=== PATIENT | female | born 1960 | race African-American/Black ===

== ENCOUNTER → 2017-12-02 | Outpatient (CLI) | payer OTHER ==
--- NOTE | 2017-12-02 12:47 | S ---
[address] [address] SURGICAL PATH RPT PROCEDURE Name: RICHARD MAURICE Room: [facility]#: [id number] Admission: 12/02/17 Date of : 58 Discharge: Report #: [id number] Path Case #: [id number] PATHOLOGY REPORT COLLECTION DATE: 12/02/2017 RECEIVED DATE: 12/02/2017 SUBMITTING PHYS: Dr. Karsten Porter OTHER PHYS: SPECIMEN(S) RECEIVED: A.Left knee fluid * * * * * * * * * * * * FINAL DIAGNOSIS: (Left knee fluid): - Few crystals compatible with calcium pyrophosphate dihydrate (CPPD), without urate crystals identified. (JOE:huy; 12/02/2017) PATHOLOGIST: Arnol Nick M.D. REPORT ELECTRONICALLY SIGNED BY: Arnol Nick M.D. DATE/TIME: 12/02/2017 12:47 * * * * * * * * * * * * GROSS PATHOLOGY: Received for cell count, cultures, chemistries, and crystal analysis, is a syringe labeled, "Richard Maurice" and is noted to be from left knee (per telephonic confirmation with Dr. Porter by Alison/[facility] laborer [employer]), which contains approximately 60 mL of hazy red fluid. For crystal analysis, a WetPrep is prepared and examined under cross polarized microscopy. (JOE:huy; 12/02/2017) CLINICAL HISTORY: None Provided INITIAL CPT CODE(S): A; 92748, 00279 Professional services performed by [facility] at [facility] [address] [place] [address] Technical services performed by [facility] at [address] [place] [address], [facility] [address] [address]. [facility] [address] [place] [address] SURGICAL PATH RPT PROCEDURE Name: RICHARD MAURICE [id number] Admission: 12/02/17 Date of : 58 Discharge: Report #: [id number] Path Case #: [id number] [place] [id number] [address] [address] PHONE: [phone] DIRECTOR: Jani Johnson M.D. * * * END OF REPORT * * *
[2017-12-03 06:39] LABS: SOURCE KNEE
[2017-12-04 06:10] LABS: BODY FLUID PROTEIN 5.4 g/dL (())
== END ==
LOC: M.LAB 10:28
PROVIDERS: Orthopaedic Surgery
DX: M25.48 Effusion, other site (principal)